=== PATIENT | female | born 1975 | race Caucasian/White ===

== ENCOUNTER 2024-01-15 19:45 | Emergency (ER) | payer MEDICAID, SELFPAY ==
[2024-01-15 19:46] VITALS: BMI 29.0
[2024-01-15 20:21] VITALS: BP 121/85; PULSE 85; RESP 18; TEMP 36.8; O2SAT 99
--- NOTE | 2024-01-15 20:31 | XR_ITS ---
Examination: CT abdomen with intravenous contrast CT pelvis with intravenous contrast 2-D coronal reconstructions 2-D sagittal reconstructions Date and time of exam:January 25, 2024 1108 hrs. Indications: Onset left-sided abdominal pain and black stools beginning one week ago Comparison: July 29, 2020,. CTDI: vol (mGy) 8.61 DLP: (mGycm) 475 Technique: Multiple axial sections of the abdomen and pelvis have been obtained. 64 slice high-resolution scanner used. 3 mm axial sections have been obtained, post intravenous injection 60 cc [id number] 2-D sagittal, coronal reconstructions obtained. Low dose protocols were performed. One or more of the following dose reduction techniques were used; automated exposure control, adjustment of the mA and/or KV according to patient size, use of iterative reconstruction technique. Findings: No focal liver or splenic lesions No gallstones No pancreatic or adrenal mass No renal or ureteral calculi, no hydronephrosis Aorta normal size Normal appendix No bowel obstruction No current diverticulitis Anteverted uterus Urinary bladder intact Impression: No renal or ureteral calculi, no hydronephrosis Normal appendix No bowel obstruction diverticulitis or free air No nonspecific colitis or enteritis pattern
--- NOTE | 2024-01-15 20:32 | PD.EDRME ---
Rapid Medical Screening Exam [facility] Arrival date/time: 01/15/24 19:45 48F with history of diverticulitis presents to ED with several days of L-sided ab pain. Patient has been taking Augmentin from PCP w/o improvement. Patient has had flares before, but this time there was black stool. Patient has not taken iron or Pepto. Chief Complaint: Abdominal Pain Vital signs: Vital Signs Temperature 98.2 F 01/15/24 20:21 Pulse Rate 85 01/15/24 20:21 Respiratory Rate 18 01/15/24 20:21 Blood Pressure 121/85 H 01/15/24 20:21 Pulse Oximetry (%) 99 01/15/24 20:21 Oxygen Delivery Method Room Air 01/15/24 20:21
[2024-01-15 20:46] LABS: Basophils % (Auto) 0 % (0-2.5); Eosinophils # (Auto) 0.2 Thou/mm3 (0.0-0.5); Eosinophils % (Auto) 2 % (0-10); Hematocrit 43.8 % (36.0-46.0); Immature Granulocytes % (Auto) 0 % (0-0); Immature Granulocytes Auto 0.01 Thou/mm3 (0.00-0.00); Lymphocytes # (Auto) 2.3 Thou/mm3 (1.0-4.8); Lymphocytes % (Auto) 32 % (10-50); Mean Corpuscular HGB Conc 34.2 g/dl (31.0-37.0); Mean Corpuscular Hemoglobin 30.4 pg (25.0-35.0); Mean Corpuscular Volume 89 fL (80-100); Monocytes # (Auto) 0.5 Thou/mm3 (0.0-0.8); Monocytes % (Auto) 6 % (0-12); Neutrophils # (Auto) 4.2 Thou/mm3 (1.8-7.7); Neutrophils % (Auto) 58 % (37-80); Nucleated Red Blood Cell % 0 /100 WBC (0); Platelet Count 251 Thou/mm3 (140-440); RDW Standard Deviation 40.9 fL (36.4-46.3); Red Blood Count 4.93 Miln/mm3 (4.00-5.20); White Blood Count 7.1 Thou/mm3 (3.6-11.0)
[2024-01-15 21:02] LABS: Collection Type, Urine Clean Catch; WBC,Urine 0 /hpf (0-5)
[2024-01-15 21:06] LABS: Alanine Aminotransferase 55 U/L (10-49); Albumin, Serum 4.6 gm/dL (3.5-5.0); Albumin/Globulin Ratio 1.3 (1.2-2.2); Alkaline Phosphatase 71 U/L (46-116); Anion Gap 8 (7-16); Aspartate Amino Transferase 22 U/L (0-34); BUN/Creatinine Ratio 10 Ratio (12-20); Bilirubin,Total 0.4 mg/dL (0.3-1.2); Blood Urea Nitrogen 8 mg/dL (9-23); Calcium 10.1 mg/dL (8.3-10.6); Calcium (Corrected) 10.1 mg/dL (8.5-10.1); Carbon Dioxide 26.4 mMol/L (20.0-31.0); Chloride 105 mMol/L (98-107); Creatinine (Component) 0.8 mg/dL (0.6-1.3); Estimated Creatinine Clearance 76.9 mL/min (>60); Globulin 3.5 gm/dL (2.3-3.5); Glucose 96 mg/dL (74-106); Lipase 39 U/L (12-53); Osmolality,Calculated 275 (275-295); Potassium 3.5 mMol/L (3.4-5.1); Sodium 139 mMol/L (136-145); Total Protein 8.1 gm/dL (5.7-8.2); eGFR > 60 See Note
[2024-01-15 21:55] LABS: Bacteria,Urine Rare; Bilirubin,Urine Negative (Negative); Blood,Urine 1+ (Negative); Clarity,Urine Clear (Clear/Hazy); Color,Urine Yellow (Lt Yel-Yel); Glucose, Urine Negative (Negative); Hyaline Casts,Urine < 1 /hpf (0-1); Ketones,Urine Negative (Negative); Leukocyte Esterase,Urine Negative (Negative); Nitrite,Urine Negative (Negative); Protein,Urine Trace (Neg - Trace); RBC,Urine 6 /hpf (0-3); Squamous Epithelial Cell,Urine 2 /hpf (0-5)
[2024-01-15 21:57] LABS: HCG Qualitative,Urine Negative
--- NOTE | 2024-01-15 23:09 | EDNOTE_ITS ---
ED Abdominal Pain RME/HPI General Chief Complaint: Abdominal Pain Stated complaint: L side pain, black stools Arrival date/time: 01/15/24 19:45 Limitations: no limitations RME / HPI RME / HPI narrative: 01/15/24 19:45 48F with history of diverticulitis presents to ED with several days of L-sided ab pain. Patient has been taking Augmentin from PCP w/o improvement. Patient has had flares before, but this time there was black stool. Patient has not taken iron or Pepto. ----- Dr. Wright's Main ED Evaluation: 48yo female with a history of diverticulitis presents to the ED for a chief complaint of black stools x 4 days. Patient states she is currently on antibiotics for diverticulitis after being diagnosed 4 days ago. She is not on any blood thinners. She denies taking any Motrin or Aspirin. She currently denies any abdominal pain, fever, chills, N/V or any other associated symptoms. Denies any history of similar symptoms. No known allergies. Related Data Home Medications ?Medication ?Instructions ?Recorded ?Confirmed No Known Home Medications 07/29/20 07/29/20 Allergies Allergy/AdvReac Type Severity Reaction Status Date / Time No Known Allergies Allergy Unknown Uncoded 01/15/24 19:49 Review of Systems Review of Systems Systems Reviewed: All systems reviewed, normal except as documented Past Medical History Past Medical History CARDIAC: Negative Cardiac Disorders or Congestive Heart Failure RESPIRATORY: Negative Chronic Obstructive Pulmonary Disease (COPD) or Asthma GENITOURINARY: Negative Renal Disease ENDOCRINE: Negative Diabetes Mellitus Type 1 or Diabetes Mellitus Type 2 HEMATOLOGIC: Negative Sickle Cell Disease Surgical History SURGICAL: Positive Section Social History SMOKING STATUS: Never smoker ED Exam General Limitations: Present no limitations General appearance: Present alert and in no apparent distress Head Head exam: Present atraumatic Eye Eye exam: Present normal appearance, PERRL and EOMI ENT ENT exam: Present normal exam, normal oropharynx and mucous membranes moist Neck Neck exam: Present normal inspection, full ROM and trachea midline Chest Chest inspection: Present normal inspection and symmetric chest wall rise Respiratory Respiratory exam: Present normal lung sounds bilaterally Cardiovascular Cardiovascular exam: Present regular rate, normal rhythm and normal heart sounds Abdominal Exam Abdominal exam: Present soft and normal bowel sounds Rectal Exam Rectal exam: Present heme (-) stool Extremities Exam Extremities exam: Present normal inspection and full ROM Back Exam Back exam: Present normal inspection and full ROM Neurological Exam Neurological exam: Present alert, oriented X3 and CN II-XII intact Psychiatric Psychiatric exam: Present normal affect and normal mood Skin Skin exam: Present warm, dry, intact and normal color Course Quality Measures none Orders Category Date Time Status CT Screening NOW Care 01/15/24 20:32 Active Insert IV NOW Care 01/15/24 20:[address] abdomen pelvis w con Stat Exams 01/15/24 20:31 Completed CBC Stat Lab 01/15/24 20:40 Completed CMP [Comprehensive Metabolic Panel] Stat Lab 01/15/24 20:40 Completed HCG Qualitative,Urine Stat Lab 01/15/24 20:52 Completed Lipase Stat Lab 01/15/24 20:40 Completed UA [Urinalysis] Stat Lab 01/15/24 20:52 Completed Vital Signs Vital signs: Vital Signs Temperature 98.2 F 01/15/24 20:21 Pulse Rate 85 01/15/24 20:21 Respiratory Rate 18 01/15/24 20:21 Blood Pressure 121/85 H 01/15/24 20:21 Pulse Oximetry (%) 99 01/15/24 20:21 Oxygen Delivery Method Room Air 01/15/24 20:21 Pulse ox is 99% on room air, which is normal according to my interpretation. Abdominal Pain MDM Patient data External records reviewed:: [facility] previous records (Per chart review, patient was seen here on 07/30/20 for diverticulitis.) Clinical information provided by:: patient Social determinants that could affect healthcare access:: none Patient has the following chronic illnesses:: none How is presenting disease/condition affected by chronic disease/condition?: no chronic disease Evaluation data The following diagnostics were reviewed and interpreted by me:: lab results and radiology exam(s) Lab and/or radiology exams considered but not ordered:: none Interpretation Summary: CBC is normal, CMP is normal, Lipase is normal, UA shows trace protein, 1+ blood, and rare bacteria, HCG is negative, according to my interpretation. ------ I have personally reviewed the radiology data and agree with the radiologist's interpretation below: [facility] Report Signed Patient: RASHAUN AVILA [facility]. Record#: [id number] Birthdate: 1975 Age/Sex: 48 / F Location: [facility] Attending Dr: Ordering Physician: [place] PA-C Date of Service: 01/15/24 Procedure(s): CT abdomen pelvis w con Accession Number(s): [id number] cc: Rey Yu PA-C; Jose Delarosa MD; Los Lei PA-C~ Examination: CT abdomen with intravenous contrast CT pelvis with intravenous contrast 2-D coronal reconstructions 2-D sagittal reconstructions Date and time of exam:January 25, 2024 1108 hrs. Indications: Onset left-sided abdominal pain and black stools beginning one week ago Comparison: July 29, 2020,. CTDI: vol (mGy) 8.61 DLP: (mGycm) 475 Technique: Multiple axial sections of the abdomen and pelvis have been obtained. 64 slice high-resolution scanner used. 3 mm axial sections have been obtained, post intravenous injection 60 cc [id number] 2-D sagittal, coronal reconstructions obtained. Low dose protocols were performed. One or more of the following dose reduction techniques were used; automated exposure control, adjustment of the mA and/or KV according to patient size, use of iterative reconstruction technique. Findings: No focal liver or splenic lesions No gallstones No pancreatic or adrenal mass No renal or ureteral calculi, no hydronephrosis Aorta normal size Normal appendix No bowel obstruction No current diverticulitis Anteverted uterus Urinary bladder intact Impression: No renal or ureteral calculi, no hydronephrosis Normal appendix No bowel obstruction diverticulitis or free air No nonspecific colitis or enteritis pattern Dictated By: Jose Delarosa MD Signed By: <Electronically signed by Jose Delarosa MD in [place]> 01/15/24 2102 Medications / Prescriptions Medications or Prescriptions considered but not ordered:: none Medication administrations:: none Consultations Consultation(s) initiated? (list below): No Diagnosis Differential diagnosis abdominal pain: diverticulitis and other (diverticular disease, dehydration, GI bleed) Most likely diagnosis given after review of the tests above:: see below Admission Indicated Admission indicated?: not indicated Admission Request Was there a request for admission?: No Disposition Plan Disposition Plan: Discharge Discharge Attestation Discharge Attestation: The patient and all family members were given an opportunity to ask questions and understood the discharge instructions. Discharge instructions specifically effects, indications for sooner follow up or return to the emergency department, and the expected course of current diagnosis. Patient condition: Stable Discharge Plan Plan Patient Disposition: HOME (Self Care) Patient condition on transfer: Stable Prescriptions/Referrals Prescriptions/Med Rec: No Action No Known Home Medications Referrals: Rey Yu PA-C [Primary Care Provider] - In 1 week Problem List Clinical Impression: Dark stools Patient/Caregiver Discharge Instructions Additional Instructions: Today your stool did not show that you have blood, Your Ct scan did not show infection. Return to the ED for worsening symptoms, fevers, or any other concerns. Take your antibiotics as prescribed. Print Language: Palestinian Stand Alone Forms: Miesha Award Info., Patient Portal Info Letter
[2024-01-16 00:53] VITALS: BP 118/78; PULSE 73; RESP 18; O2SAT 99
== END 2024-01-16 00:42 | disposition home or self-care (01) ==
PROVIDERS: Physician Assistant; Emergency Provider Emergency Medicine; PCP Physician Assistant
DX: K92.1 Melena (principal)
CPT/HCPCS: 36415; 74177; 80053; 81001; 81025; 83690; 85025; 99285; A4649; Q9967

== ENCOUNTER 2024-07-16 15:37 | Emergency (ER) | payer MEDICAID, SELFPAY ==
[2024-07-16 15:37] VITALS: BMI 30.2
[2024-07-16 16:27] VITALS: BP 116/64; PULSE 79; RESP 20; TEMP 36.7; O2SAT 96
--- NOTE | 2024-07-16 16:35 | EDNOTE_ITS ---
ED Abdominal Pain RME/HPI General Chief Complaint: Abdominal Pain Stated complaint: LUQ PAIN Time seen by provider: 07/16/24 16:18 Arrival date/time: 07/16/24 15:37 Limitations: no limitations RME / HPI RME / HPI narrative: 49-year-old female here for abdominal pain x 2 days. Went to PCP and started on Macrobid for UTI. However she thinks she has diverticulitis. States the pain feels like before. Despite no diarrhea no rectal bleeding. denies fever, chills, N/V or any other associated symptoms. Has never had colonoscopy to rule out colonic mass. Otherwise no contributing medical history Related Data Previous Rx's ?Medication ?Instructions ?Recorded ciprofloxacin HCl 500 mg tablet 500 mg PO Q12H 10 days #20 tabs 07/16/24 (Cipro) Allergies Allergy/AdvReac Type Severity Reaction Status Date / Time No Known Allergies Allergy Unknown Uncoded 07/16/24 15:39 Review of Systems Review of Systems Systems Reviewed: All systems reviewed, normal except as documented Constitutional Constitutional: Denies fever(s) Gastrointestinal Gastrointestinal: Reports as per HPI Genitourinary Genitourinary: Denies hematuria and Denies urinary frequency ED Exam General Limitations: Present no limitations General appearance: Present alert and in no apparent distress Eye Eye exam: Present normal appearance, PERRL and EOMI Respiratory Respiratory exam: Present normal lung sounds bilaterally Cardiovascular Cardiovascular exam: Present regular rate, normal rhythm and normal heart sounds Abdominal Exam Abdominal exam: Present soft, tenderness (luq ttp) and normal bowel sounds Extremities Exam Extremities exam: Present normal inspection and full ROM Back Exam Back exam: Present normal inspection and full ROM Psychiatric Psychiatric exam: Present normal affect and normal mood Skin Skin exam: Present warm, dry, intact and normal color Course Quality Measures none Orders Category Date Time Status CT Screening NOW Care 07/16/24 16:35 Completed IV [Insert IV] NOW Care 07/16/24 16:[address] abdomen pelvis w con Stat Exams 07/16/24 16:35 Completed CBC Stat Lab 07/16/24 16:51 Completed CMP [Comprehensive Metabolic Panel] Stat Lab 07/16/24 16:51 Completed HCG Qualitative,Urine Stat Lab 07/16/24 17:07 Completed Lipase Stat Lab 07/16/24 16:51 Completed UA [Urinalysis] Stat Lab 07/16/24 17:07 Completed Ciprofloxacin HCl [Ciprofloxacin] Med 07/16/24 18:52 Discontinued 500 mg PO X1 ONE Vital Signs Vital signs: Vital Signs Temperature 98.1 F 07/16/24 16:27 Pulse Rate 79 07/16/24 16:27 Respiratory Rate 20 07/16/24 16:27 Blood Pressure 116/64 07/16/24 16:27 Pulse Oximetry (%) 96 07/16/24 16:27 Oxygen Delivery Method Room Air 07/16/24 16:27 Abdominal Pain MDM Patient data External records reviewed:: [facility] previous records Clinical information provided by:: patient Social determinants that could affect healthcare access:: other (specify) (PCP appointment not available on weekends) Patient has the following chronic illnesses:: History of diverticulitis How is presenting disease/condition affected by chronic disease/condition?: exacerbated by Evaluation data The following diagnostics were reviewed and interpreted by me:: lab results and radiology exam(s) Lab and/or radiology exams considered but not ordered:: Chest x-ray was considered however unlikely to change the course of treatment today Interpretation Summary: CBC CMP within normal limits UA does show suggestion of UTI along with CT scan no diverticulitis only diverticulosis does suggest UTI as well Medications / Prescriptions Medications or Prescriptions considered but not ordered:: Narcotics were considered but not warranted given patient pain is controlled Medication administrations:: Medication Administration History Discontinued Medications Ciprofloxacin (Ciprofloxacin Hcl 250 Mg Tablet) 500 mg PO X1 ONE Stop: 07/16/24 18:53 Last Admin: 07/16/24 18:58 Dose: 500 mg Documented By: Change medication to ciprofloxacin given breakthrough symptoms with Macrobid Consultations Consultation(s) initiated? (list below): No Diagnosis Differential diagnosis abdominal pain: abdominal pain, calculus of kidney, constipation, diverticulitis, gastroenteritis and pancreatitis Most likely diagnosis given after review of the tests above:: UTI Diverticulosis without abscess Admission Indicated Admission indicated?: not indicated Admission Request Was there a request for admission?: No Disposition Plan Disposition Plan: Discharge Discharge Attestation Discharge Attestation: The patient and all family members were given an opportunity to ask questions and understood the discharge instructions. Discharge instructions specifically effects, indications for sooner follow up or return to the emergency department, and the expected course of current diagnosis. Patient condition: Stable Discharge Plan Plan Patient Disposition: HOME (Self Care) Discharge Disposition comment: Follow-up with PCP in 2 to 3 days Prescriptions/Referrals Prescriptions/Med Rec: New ciprofloxacin HCl [Cipro] 500 mg tablet 500 mg PO Q12H 10 Days Qty: 20 0RF Referrals: Rey Yu PA-C [Primary Care Provider] - In 1 week Problem List Clinical Impression: Abdominal pain, UTI (urinary tract infection), Diverticulosis Patient/Caregiver Discharge Instructions Education Materials: ED Flank Pain, Uncertain Cause, ED CYSTITIS Female Adult Print Language: Bengali Stand Alone Forms: Miesha Award Info., Patient Portal Info Letter PA/MEDICAL FRONT DESK COORDINATOR Supervising Physician PA/MEDICAL FRONT DESK COORDINATOR Supervising Physician: Dr. ESTEVEZ
--- NOTE | 2024-07-16 16:35 | XR_ITS ---
Examination: CT abdomen with intravenous contrast CT pelvis with intravenous contrast 2-D coronal reconstructions 2-D sagittal reconstructions Date and time of exam:July 16, 2024 1747 hours Comparison January 15, 2024 INDICATIONS: Left lower abdominal pain beginning 3 days ago with blood in the urine, history diverticulitis. CTDI: vol (mGy) 9.52 DLP: (mGycm) 484 Technique: Multiple axial sections of the abdomen and pelvis have been obtained. 64 slice high-resolution scanner used. 3 mm axial sections have been obtained, post intravenous injection 60 cc Isovue-370 2-D sagittal, coronal reconstructions obtained. Low dose protocols were performed. One or more of the following dose reduction techniques were used; automated exposure control, adjustment of the mA and/or KV according to patient size, use of iterative reconstruction technique. Findings: No focal liver or splenic lesions No gallstones No pancreatic or adrenal mass No renal or ureteral calculi, no hydronephrosis 10 mm fat-containing umbilical hernia Normal appendix Colonic diverticulosis, no diverticulitis Anteverted uterus No uterine or adnexal mass No bladder mass or bladder calculi Minimal thickening of the anterior urinary bladder wall, axial image 198, 6 mm IMPRESSION: No renal or ureteral calculi, no hydronephrosis Normal appendix Colonic diverticulosis, no diverticulitis No bowel obstruction Minimal thickening of the urinary bladder wall, consider cystitis
[2024-07-16 17:00] LABS: Basophils % (Auto) 0 % (0-2.5); Eosinophils # (Auto) 0.1 Thou/mm3 (0.0-0.5); Eosinophils % (Auto) 1 % (0-10); Hematocrit 38.6 % (36.0-46.0); Hemoglobin 14.1 g/dL (12.0-16.0); Immature Granulocytes % (Auto) 0 % (0-0); Immature Granulocytes Auto 0.02 Thou/mm3 (0.00-0.00); Lymphocytes # (Auto) 1.9 Thou/mm3 (1.0-4.8); Lymphocytes % (Auto) 28 % (10-50); Mean Corpuscular HGB Conc 36.5 g/dl (31.0-37.0); Mean Corpuscular Volume 85 fL (80-100); Monocytes # (Auto) 0.4 Thou/mm3 (0.0-0.8); Monocytes % (Auto) 6 % (0-12); Neutrophils # (Auto) 4.4 Thou/mm3 (1.8-7.7); Neutrophils % (Auto) 65 % (37-80); Nucleated Red Blood Cell % 0 /100 WBC (0); Platelet Count 258 Thou/mm3 (140-440); RDW Standard Deviation 38.3 fL (36.4-46.3); Red Blood Count 4.55 Miln/mm3 (4.00-5.20); White Blood Count 6.7 Thou/mm3 (3.6-11.0)
[2024-07-16 17:14] LABS: Collection Type, Urine Clean Catch
[2024-07-16 17:16] LABS: Alanine Aminotransferase 12 U/L (10-49); Albumin, Serum 4.2 gm/dL (3.5-5.0); Albumin/Globulin Ratio 1.5 (1.2-2.2); Alkaline Phosphatase 49 U/L (46-116); Anion Gap 8 (7-16); BUN/Creatinine Ratio 10 Ratio (12-20); Bilirubin,Total 0.7 mg/dL (0.3-1.2); Blood Urea Nitrogen 9 mg/dL (9-23); Chloride 106 mMol/L (98-107); Creatinine (Component) 0.9 mg/dL (0.6-1.3); Estimated Creatinine Clearance 68.9 mL/min (>60); Globulin 2.8 gm/dL (2.3-3.5); Glucose 96 mg/dL (74-106); Lipase 36 U/L (12-53); Osmolality,Calculated 274 (275-295); Potassium 4.2 mMol/L (3.4-5.1); Sodium 138 mMol/L (136-145); eGFR > 60 See Note
[2024-07-16 17:24] LABS: HCG Qualitative,Urine Negative
[2024-07-16 17:31] LABS: Bacteria,Urine Rare; Bilirubin,Urine Negative (Negative); Blood,Urine Trace (Negative); Clarity,Urine Clear (Clear/Hazy); Color,Urine Lt-Yellow (Lt Yel-Yel); Glucose, Urine Negative (Negative); Ketones,Urine 1+ (Negative); Leukocyte Esterase,Urine Negative (Negative); Nitrite,Urine Negative (Negative); Protein,Urine Negative (Neg - Trace); RBC,Urine 2 /hpf (0-3); Specific Gravity,Urine 1.009 (1.001-1.035); Squamous Epithelial Cell,Urine 4 /hpf (0-5); Urobilinogen,Urine Negative mg/dL (0.0-1.0); WBC,Urine < 1 /hpf (0-5)
[2024-07-16] MEDS: CIPROFLOXACIN HCL 250 MG TABLET 500 MG PO (18:58)
[2024-07-16 19:04] VITALS: BP 132/78; PULSE 80; RESP 18; TEMP 37.1; O2SAT 98
== END 2024-07-16 19:05 | disposition home or self-care (01) ==
PROVIDERS: Physician Assistant; Emergency Provider Family Medicine; PCP Physician Assistant
DX: N39.0 Urinary tract infection, site not specified (principal); K57.90 Diverticulosis of intestine, part unspecified, without perforation or abscess without bleeding
CPT/HCPCS: 36415; 74177; 80053; 81001; 81025; 83690; 85025; 99285; A4649; Q9967; A9270

== ENCOUNTER 2024-07-19 20:02 | Emergency (ER) | payer MEDICAID, SELFPAY ==
[2024-07-19 20:02] VITALS: BMI 30.2
[2024-07-19 20:10] VITALS: BP 126/81; PULSE 83; RESP 20; TEMP 36.9; O2SAT 96
--- NOTE | 2024-07-19 20:35 | PD.EDABDPN ---
ED Abdominal Pain RME/HPI General Chief Complaint: Abdominal Pain Stated complaint: RIGHT ABD PAIN X 3DAYS Time seen by provider: 07/19/24 20:12 Arrival date/time: 07/19/24 20:02 Source: patient and family Limitations: no limitations RME / HPI complaint: abdominal pain Onset (ago): day(s) Consistency: intermittent Location: diffuse, LLQ and RLQ Severity scale (1-10): 5 Related Data Previous Rx's ?Medication ?Instructions ?Recorded ciprofloxacin HCl 500 mg tablet 500 mg PO Q12H 10 days #20 tabs 07/16/24 (Cipro) Allergies Allergy/AdvReac Type Severity Reaction Status Date / Time No Known Allergies Allergy Unknown Uncoded 07/16/24 15:39 Review of Systems Constitutional Constitutional: Reports system reviewed and no additional complaints, except as documented Eyes Eyes: Reports system reviewed and no additional complaints, except as documented, Denies dry eyes, Denies exophthalmos and Reports floaters Cardiovascular Cardiovascular: Denies chest pain with activity and Denies claudication ED Exam Narrative Physical exam: Patient is able to do 5 jumping jacks without grimace or guarding. The abdomen is soft nontender without any apparent masses. Negative for rebound tenderness. There is some tenderness to palpation in the right and left lower quadrant but again there is no guarding and no grimacing. The bowel sounds are hyperactive. General Limitations: Present no limitations General appearance: Present alert and in no apparent distress Head Head exam: Present atraumatic Eye Eye exam: Present normal appearance, PERRL and EOMI ENT ENT exam: Present normal exam, normal oropharynx and mucous membranes moist Neck Neck exam: Present normal inspection, full ROM and trachea midline Chest Chest inspection: Present normal inspection and symmetric chest wall rise Respiratory Respiratory exam: Present normal lung sounds bilaterally Cardiovascular Cardiovascular exam: Present regular rate, normal rhythm and normal heart sounds Abdominal Exam Abdominal exam: Present soft, tenderness (Mildly tender to palpation) and hyperactive bowel sounds Abdominal tenderness: Present RLQ and LLQ Rectal Exam Rectal exam: Present deferred Extremities Exam Extremities exam: Present normal inspection and full ROM Back Exam Back exam: Present normal inspection and full ROM Neurological Exam Neurological exam: Present alert and oriented X3 Psychiatric Psychiatric exam: Present normal affect and normal mood Skin Skin exam: Present warm, dry, intact and normal color Course Course Course Narrative: Patient will have a CBC, CMP, UA. Quality Measures none (NA) Orders Category Date Time Status CBC Stat Lab 07/19/24 20:46 Completed Comprehensive Metabolic Panel Stat Lab 07/19/24 20:46 Completed Lipase Stat Lab 07/19/24 20:46 Completed Urinalysis Stat Lab 07/19/24 21:01 Completed Vital Signs Vital signs: Vital Signs Temperature 98.4 F 07/19/24 20:10 Pulse Rate 83 07/19/24 20:10 Respiratory Rate 20 07/19/24 20:10 Blood Pressure 126/81 07/19/24 20:10 Pulse Oximetry (%) 96 07/19/24 20:10 Oxygen Delivery Method Room Air 07/19/24 20:10 Pulse ox room air is 96%. Abdominal Pain MDM MDM Narrative MDM Narrative:: Patient will be informed of her labs and she is to primary care physician for follow-up to today's visit. She does not have a urinary tract infection so it should be up to her and her doctor as to whether she should continue this ciprofloxacin and the nitrofurantoin. Patient data External records reviewed:: Other (specify) (No) Clinical information provided by:: patient Social determinants that could affect healthcare access:: none Patient has the following chronic illnesses:: None How is presenting disease/condition affected by chronic disease/condition?: no chronic disease Evaluation data The following diagnostics were reviewed and interpreted by me:: lab results Lab and/or radiology exams considered but not ordered:: Lab results indicate no apparent urinary tract infection Interpretation Summary: N/A Medications / Prescriptions Medications or Prescriptions considered but not ordered:: N/A Medication administrations:: NA Consultations Consultation(s) initiated? (list below): No Consultation #1 (Physician, Specialty, Details): N/A Diagnosis Differential diagnosis abdominal pain: abdominal pain, constipation and diverticulitis Most likely diagnosis given after review of the tests above:: NA Admission Indicated Admission indicated?: not indicated Explain why admission is indicated or not indicated:: N/A Admission Request Was there a request for admission?: No Disposition Plan Disposition Plan: Discharge Discharge Attestation Discharge Attestation: The patient and all family members were given an opportunity to ask questions and understood the discharge instructions. Discharge instructions specifically effects, indications for sooner follow up or return to the emergency department, and the expected course of current diagnosis. Patient condition: Stable Discharge Plan Plan Patient Disposition: HOME (Self Care) Discharge Disposition comment: N/A Patient condition on transfer: Stable Prescriptions/Referrals Prescriptions/Med Rec: No Action ciprofloxacin HCl [Cipro] 500 mg tablet 500 mg PO Q12H 10 Days Qty: 20 0RF Referrals: Temporary Provider,ED [Physician] - In 1 week Problem List Clinical Impression: Abdominal pain Impression comment: Abdominal pain Patient/Caregiver Discharge Instructions Discharge Activity: activity as tolerated Print Language: Wolof Stand Alone Forms: Miesha Award Info., Patient Portal Info Letter PA/DETECTIVE SUPERVISOR Supervising Physician PA/DETECTIVE SUPERVISOR Supervising Physician: Harinder
[2024-07-19 21:04] LABS: Basophils # (Auto) 0.1 Thou/mm3 (0.0-0.2); Basophils % (Auto) 1 % (0-2.5); Eosinophils # (Auto) 0.1 Thou/mm3 (0.0-0.5); Eosinophils % (Auto) 1 % (0-10); Hematocrit 38.5 % (36.0-46.0); Immature Granulocytes % (Auto) 0 % (0-0); Immature Granulocytes Auto 0.01 Thou/mm3 (0.00-0.00); Lymphocytes # (Auto) 1.6 Thou/mm3 (1.0-4.8); Lymphocytes % (Auto) 24 % (10-50); Mean Corpuscular HGB Conc 36.4 g/dl (31.0-37.0); Mean Corpuscular Hemoglobin 30.7 pg (25.0-35.0); Mean Corpuscular Volume 84 fL (80-100); Monocytes # (Auto) 0.4 Thou/mm3 (0.0-0.8); Monocytes % (Auto) 5 % (0-12); Neutrophils # (Auto) 4.7 Thou/mm3 (1.8-7.7); Neutrophils % (Auto) 68 % (37-80); Nucleated Red Blood Cell % 0 /100 WBC (0); Platelet Count 238 Thou/mm3 (140-440); RDW Standard Deviation 37.4 fL (36.4-46.3); Red Blood Count 4.56 Miln/mm3 (4.00-5.20); White Blood Count 6.8 Thou/mm3 (3.6-11.0)
[2024-07-19 21:16] LABS: Alanine Aminotransferase 13 U/L (10-49); Albumin, Serum 4.4 gm/dL (3.5-5.0); Albumin/Globulin Ratio 1.6 (1.2-2.2); Alkaline Phosphatase 49 U/L (46-116); Anion Gap 11 (7-16); BUN/Creatinine Ratio 9 Ratio (12-20); Bilirubin,Total 0.6 mg/dL (0.3-1.2); Blood Urea Nitrogen 8 mg/dL (9-23); Calcium 9.4 mg/dL (8.3-10.6); Calcium (Corrected) 9.4 mg/dL (8.5-10.1); Carbon Dioxide 19.6 mMol/L (20.0-31.0); Chloride 102 mMol/L (98-107); Creatinine (Component) 0.9 mg/dL (0.6-1.3); Estimated Creatinine Clearance 68.9 mL/min (>60); Globulin 2.8 gm/dL (2.3-3.5); Glucose 122 mg/dL (74-106); Lipase 39 U/L (12-53); Osmolality,Calculated 265 (275-295); Potassium 3.7 mMol/L (3.4-5.1); Sodium 133 mMol/L (136-145); Total Protein 7.2 gm/dL (5.7-8.2); eGFR > 60 See Note
[2024-07-19 21:17] LABS: Collection Type, Urine Clean Catch; WBC,Urine 0 /hpf (0-5)
[2024-07-19 21:56] LABS: Bilirubin,Urine Negative (Negative); Blood,Urine 1+ (Negative); Clarity,Urine Clear (Clear/Hazy); Color,Urine Colorless (Lt Yel-Yel); Glucose, Urine Negative (Negative); Ketones,Urine 1+ (Negative); Leukocyte Esterase,Urine Negative (Negative); Nitrite,Urine Negative (Negative); Protein,Urine Negative (Neg - Trace); RBC,Urine 1 /hpf (0-3); Specific Gravity,Urine 1.005 (1.001-1.035); Squamous Epithelial Cell,Urine 2 /hpf (0-5); Urobilinogen,Urine Negative mg/dL (0.0-1.0)
== END 2024-07-19 23:13 | disposition home or self-care (01) ==
PROVIDERS: Physician Assistant; Emergency Provider Emergency Medicine; PCP Physician Assistant
DX: R10.9 Unspecified abdominal pain (principal)
CPT/HCPCS: 36415; 80053; 81001; 83690; 83735; 85025; 86140; 99283

== ENCOUNTER → 2024-10-11 | Outpatient (CLI) | payer MEDICAID, SELFPAY ==
--- NOTE | 2024-10-11 10:10 | XR_ITS ---
Examination: CT abdomen, without intravenous contrast. CT pelvis, without intravenous contrast. CT abdomen, with intravenous contrast. CT pelvis, with intravenous contrast. 2-D sagittal coronal reconstructions. Date and time of exam:October 11, 2024, 1024 hours, comparison July 16, 2024 INDICATIONS: Left lower quadrant abdominal pain and constipation beginning 3 weeks ago CTDI: vol (mGy) 15.8 DLP: (mGycm) 845 Technique: Multiple 3.0 axial images of the abdomen and pelvis without intravenous contrast, 3.0 mm slice thickness. Multiple 3.0 postcontrast images abdomen and pelvis also obtained, post intravenous injection 60 cc Isovue-370 2-D sagittal and coronal reconstructions. Low dose protocols were performed. One or more of the following dose reduction techniques were used; automated exposure control, adjustment of the mA and/or KV according to patient size, use of iterative reconstruction technique. Findings: No focal liver or splenic lesions Contracted gallbladder No pancreatic or adrenal mass. No renal or ureteral calculi, no hydronephrosis Aorta normal size. Normal appendix Anteverted uterus No adnexal mass. Contracted urinary bladder Moderate osteopenia IMPRESSION: No renal or ureteral calculi, no hydronephrosis Normal appendix No bowel obstruction diverticulitis or free air.
== END | disposition home or self-care (01) ==
LOC: CCTX 08:58 → SCAT 09:53
PROVIDERS: PCP Physician Assistant; Referring Provider Physician Assistant; Visit Provider Physician Assistant
DX: R10.32 Left lower quadrant pain (principal); K57.32 Diverticulitis of large intestine without perforation or abscess without bleeding; Z12.11 Encounter for screening for malignant neoplasm of colon
CPT/HCPCS: 74178; A4649; Q9967

== ENCOUNTER 2024-10-12 22:35 | Emergency (ER) | payer MEDICAID, SELFPAY ==
[2024-10-12 22:47] VITALS: BP 139/75; PULSE 95; RESP 16; TEMP 37; O2SAT 97; BMI 29.5
--- NOTE | 2024-10-12 22:59 | EDNOTE_ITS ---
ED Syncope RME/HPI General Chief Complaint: Syncope / Near Syncope Stated Complaint: NEAR SYNCOPE Time Seen by Provider: 10/12/24 23:04 Arrival date/time: 10/12/24 22:35 RME / HPI RME / HPI narrative: See [facility] for Dr. Julien's HPI documentation. Related Data Previous Rx's ?Medication ?Instructions ?Recorded alprazolam 0.25 mg tablet (Xanax) 0.25 mg PO BID PRN a nxiety #10 tabs 10/13/24 Allergies Allergy/AdvReac Type Severity Reaction Status Date / Time No Known Allergies Allergy Verified 10/12/24 22:36 Review of Systems Review of Systems Systems Reviewed: All systems reviewed, normal except as documented Past Medical History Past Medical History CARDIAC: Negative Cardiac Disorders or Congestive Heart Failure RESPIRATORY: Negative Chronic Obstructive Pulmonary Disease (COPD) or Asthma GENITOURINARY: Negative Renal Disease ENDOCRINE: Negative Diabetes Mellitus Type 1 or Diabetes Mellitus Type 2 HEMATOLOGIC: Negative Sickle Cell Disease Surgical History SURGICAL: Positive Section Social History SMOKING STATUS: Never smoker ED Exam Narrative Physical exam: See [facility] for Dr. Julien's physical exam documentation. Course Course Course Narrative: CXR is ordered for determining the etiology of palpitations. Quality Measures none Orders Category Date Time Status EKG (ED ONLY) *Do not use* NOW Care 10/12/24 23:04 Completed EKG (ED Only) Stat Exams 10/12/24 23:04 Draft XR chest 1V portable Stat Exams 10/12/24 23:05 Completed BMP [Basic Metabolic Panel] Stat Lab 10/12/24 23:10 Completed BNP [B-Type Natriuretic Peptide] Stat Lab 10/12/24 23:10 Completed CBC Stat Lab 10/12/24 23:10 Completed D-Dimer Stat Lab 10/12/24 23:10 Completed Magnesium Stat Lab 10/12/24 23:10 Completed TSH [Thyroid Stimulating Hormone] Stat Lab 10/12/24 23:10 Completed Troponin I Stat Lab 10/12/24 23:10 Completed ALPRazoLAM [Xanax] Med 10/12/24 23:04 Discontinued 0.25 mg PO X1 ONE Vital Signs Vital signs: Vital Signs Temperature 98.6 F 10/12/24 22:47 Pulse Rate 95 10/12/24 22:47 Respiratory Rate 16 10/12/24 22:47 Blood Pressure 139/75 H 10/12/24 22:47 Pulse Oximetry (%) 97 10/12/24 22:47 Oxygen Delivery Method Room Air 10/12/24 22:47 Syncope MDM Narrative MDM Narrative:: This section includes all my notes and documentations, including HPI, PE, and ED course. Leonel Julien MD HPI: 49yo female here with palpitations that started just [employer]. Other symptoms include intense fear, sweating, chills, shaking, trouble breathing, chest pain, stomach pain, nausea, numbness and tingling in the hands and feet and face, confusion, hot flashes, and feeling faint. No other complaints. ROS: All negative except as documented in HPI. Physical Exam: General: Alert and oriented. Appears anxious. Eyes: Conjunctivae and lids clear. ENT: No nasal congestion. Neck: Supple. Heart: Sinus tachycardia noted. Lungs: No respiratory distress. Good air movement. No rhonchi, wheezing, rales. Abdomen: Soft and nontender. Normal bowel sounds. No distension. No rebound or guarding. Back: No CVA tenderness. Skin: Warm and dry. Neuro: Alert and oriented X 3. I reviewed all diagnostic test results. My interpretation of the EKG is sinus rhythm with no ST-T changes. My interpretation of the chest x-ray is NAD. Blood tests are unremarkable. At this point, diagnoses include: Palpitations due to anxiety Treatment here included: Xanax Recommended outpatient management. Based on my best medical judgment, made decision no further evaluation or treatment indicated at this time. Patient understands and agrees to the discharge instructions customized and printed, see below. Discharge instructions from Dr. Julien: 1. After extensive evaluation, there is no life-threatening condition. Such as heart attack or pulmonary embolism (blood clots in your lungs) or pneumothorax (collapsed lung). 2. Your symptoms may be due to underlying stress or anxiety or nerves. This is fairly common. 3. Take Xanax as needed. Whether this helps or not will be valuable information to your private doctors. 4. See a private doctor on 10/16/2024 for recheck. To make sure there is no serious underlying heart condition, ask to help you get more tests for your heart that cannot be done here in the ER. Such as Holter Monitor (cardiac monitoring at home from a day to even a month), heart stress test (on treadmill or with medication), echocardiogram (imaging of your heart structures), heart catherization (checking for blockages in your heart arteries), and a referral to see a Chinese Medicine Practitioner. 5. Seek immediate medical care with worsening or with any concerns. Leonel Julien MD Patient data External records reviewed:: [facility] previous records (Per chart review, patient was seen here on 07/19/24 for abdominal pain.) Clinical information provided by:: patient Social determinants that could affect healthcare access:: none Patient has the following chronic illnesses:: none How is presenting disease/condition affected by chronic disease/condition?: no chronic disease Evaluation data The following diagnostics were reviewed and interpreted by me:: lab results, radiology exam(s) and EKG tracing(s) (My interpretation of the EKG: NSR (94 bpm) with no ST-T changes. Leonel Julien MD) Lab and/or radiology exams considered but not ordered:: none Interpretation Summary: I reviewed all diagnostic test results. My interpretation of the EKG is sinus rhythm with no ST-T changes. My interpretation of the chest x-ray is NAD. Blood tests are unremarkable. Medications / Prescriptions Medications or Prescriptions considered but not ordered:: none Medication administrations:: Medication Administration History Discontinued Medications Alprazolam (Alprazolam 0.25 Mg Tablet) 0.25 mg PO X1 ONE Stop: 10/12/24 23:05 Last Admin: 10/12/24 23:21 Dose: 0.25 mg Documented By: ABNER Xanax Consultations Consultation(s) initiated? (list below): No Diagnosis Syncope Differential Diagnosis: pulmonary embolism, dehydration and other (palpitations, anxiety, SD) Most likely diagnosis given after review of the tests above:: Palpitations due to anxiety Admission Indicated Admission indicated?: not indicated Explain why admission is indicated or not indicated:: With significant improvement and no condition needing emergent intervention, there was no indication for admission. Admission Request Was there a request for admission?: No Disposition Plan Disposition Plan: Discharge Discharge Attestation Discharge Attestation: The patient and all family members were given an opportunity to ask questions and understood the discharge instructions. Discharge instructions specifically effects, indications for sooner follow up or return to the emergency department, and the expected course of current diagnosis. Patient condition: Stable Discharge Plan Plan Patient Disposition: HOME (Self Care) Prescriptions/Referrals Prescriptions/Med Rec: New alprazolam [Xanax] 0.25 mg tablet 0.25 mg PO BID PRN (Reason: anxiety) Qty: 10 0RF Problem List Clinical Impression: Palpitations Patient/Caregiver Discharge Instructions Discharge Activity: activity as tolerated Education Materials: ED Anxiety Reaction, ED Palpitations, ED Panic Attack Additional Instructions: Discharge instructions from Dr. Julien: 1. After extensive evaluation, there is no life-threatening condition.? Such as heart attack or pulmonary embolism (blood clots in your lungs) or pneumothorax (collapsed lung). 2. Your symptoms may be due to underlying stress or anxiety or nerves.? This is fairly common. 3. Take Xanax as needed.? Whether this helps or not will be valuable information to your private doctors. 4. See a private doctor on 10/16/2024 for recheck. To make sure there is no serious underlying heart condition, ask to help you get more tests for your heart that cannot be done here in the ER.? Such as Holter Monitor (cardiac monitoring at home from a day to even a month), heart stress test (on treadmill or with medication), echocardiogram (imaging of your heart structures), heart catherization (checking for blockages in your heart arteries), and a referral to see a Chinese Medicine Practitioner. 5. Seek immediate medical care with worsening or with any concerns.?? Print Language: Portuguese Stand Alone Forms: Miesha Award Info., Patient Portal Info Letter
--- NOTE | 2024-10-12 23:04 | EKG_ITS ---
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
--- NOTE | 2024-10-12 23:05 | XR_ITS ---
Examination: PA chest single view Technique: Upright PA chest single view Date and time: October 12, 2024, 1142 hrs. Indications: Shortness of breath dizziness today Findings: Normal heart size. The lungs are clear. The osseous structures are intact Impression: No active disease
[2024-10-12 23:29] LABS: Basophils # (Auto) 0.0 Thou/mm3 (0.0-0.2); Basophils % (Auto) 1 % (0-2.5); Eosinophils # (Auto) 0.2 Thou/mm3 (0.0-0.5); Eosinophils % (Auto) 3 % (0-10); Hematocrit 40.1 % (36.0-46.0); Hemoglobin 13.7 g/dL (12.0-16.0); Immature Granulocytes Auto 0.01 Thou/mm3 (0.00-0.00); Lymphocytes # (Auto) 2.4 Thou/mm3 (1.0-4.8); Lymphocytes % (Auto) 41 % (10-50); Mean Corpuscular HGB Conc 34.2 g/dl (31.0-37.0); Mean Corpuscular Hemoglobin 30.8 pg (25.0-35.0); Mean Corpuscular Volume 90 fL (80-100); Monocytes # (Auto) 0.4 Thou/mm3 (0.0-0.8); Monocytes % (Auto) 7 % (0-12); Neutrophils # (Auto) 2.8 Thou/mm3 (1.8-7.7); Neutrophils % (Auto) 48 % (37-80); Nucleated Red Blood Cell # 0.00 Thou/mm3 (0.00-0.00); Nucleated Red Blood Cell % 0 /100 WBC (0); Platelet Count 255 Thou/mm3 (140-440); RDW Standard Deviation 42.4 fL (36.4-46.3); Red Blood Count 4.45 Miln/mm3 (4.00-5.20); White Blood Count 5.8 Thou/mm3 (3.6-11.0)
[2024-10-12 23:51] LABS: B-Type Natriuretic Peptide < 20 pg/mL (0-100)
[2024-10-12 23:54] LABS: Anion Gap 11 (7-16); BUN/Creatinine Ratio 9 Ratio (12-20); Blood Urea Nitrogen 8 mg/dL (9-23); Calcium 9.8 mg/dL (8.3-10.6); Carbon Dioxide 22.3 mMol/L (20.0-31.0); Chloride 108 mMol/L (98-107); Creatinine (Component) 0.9 mg/dL (0.6-1.3); Estimated Creatinine Clearance 68.0 mL/min (>60); Glucose 111 mg/dL (74-106); Magnesium 2.1 mg/dL (1.6-2.6); Osmolality,Calculated 280 (275-295); Potassium 4.4 mMol/L (3.4-5.1); Sodium 141 mMol/L (136-145); Thyroid Stimulating Hormone 3.58 uIU/mL (0.55-4.78); Troponin I < 0.002 ng/mL (0.0-0.045); eGFR > 60 See Note
[2024-10-12 23:57] LABS: D-Dimer 867 ng/mL (<600)
== END 2024-10-13 00:24 | disposition home or self-care (01) ==
LOC: SERX 10-13 00:20
PROVIDERS: Emergency Provider Emergency Medicine; PCP Physician Assistant
DX: R00.2 Palpitations (principal)
CPT/HCPCS: 36415; 71045; 80048; 83735; 83880; 84443; 84484; 85025; 85379; 93005; 99284; A9270

== ENCOUNTER 2024-10-28 22:00 | Emergency (ER) | payer MEDICAID, SELFPAY ==
[2024-10-28 22:01] VITALS: BMI 27.8
[2024-10-28 22:08] VITALS: BP 144/84; PULSE 82; RESP 18; TEMP 36.9; O2SAT 97
--- NOTE | 2024-10-28 22:16 | EKG_ITS ---
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
--- NOTE | 2024-10-28 22:16 | XR_ITS ---
Examination: PA chest single view Technique: Upright PA chest single view Date and time: October 28, 2024 1140 hrs. Indications: Shortness of breath beginning 4 days ago. Findings: Atelectasis versus early pneumonia left base Normal heart size Right lung clear Impression: Atelectasis versus early pneumonia left base
[2024-10-28 22:41] LABS: Collection Type, Urine Voided
[2024-10-28 22:46] LABS: Basophils # (Auto) 0.0 Thou/mm3 (0.0-0.2); Basophils % (Auto) 1 % (0-2.5); Eosinophils # (Auto) 0.1 Thou/mm3 (0.0-0.5); Eosinophils % (Auto) 1 % (0-10); Hematocrit 39.9 % (36.0-46.0); Hemoglobin 13.7 g/dL (12.0-16.0); Immature Granulocytes Auto 0.01 Thou/mm3 (0.00-0.00); Lymphocytes # (Auto) 2.2 Thou/mm3 (1.0-4.8); Lymphocytes % (Auto) 35 % (10-50); Mean Corpuscular HGB Conc 34.3 g/dl (31.0-37.0); Mean Corpuscular Hemoglobin 30.6 pg (25.0-35.0); Mean Corpuscular Volume 89 fL (80-100); Monocytes # (Auto) 0.4 Thou/mm3 (0.0-0.8); Monocytes % (Auto) 6 % (0-12); Neutrophils # (Auto) 3.5 Thou/mm3 (1.8-7.7); Neutrophils % (Auto) 57 % (37-80); Nucleated Red Blood Cell # 0.00 Thou/mm3 (0.00-0.00); Nucleated Red Blood Cell % 0 /100 WBC (0); Platelet Count 252 Thou/mm3 (140-440); RDW Standard Deviation 39.8 fL (36.4-46.3); Red Blood Count 4.48 Miln/mm3 (4.00-5.20); White Blood Count 6.2 Thou/mm3 (3.6-11.0)
[2024-10-28 22:48] LABS: HCG Qualitative,Urine Negative
[2024-10-28 22:50] LABS: Amorphous Crystals,Urine Present (Absent); Bacteria,Urine Rare; Bilirubin,Urine Negative (Negative); Blood,Urine 1+ (Negative); Clarity,Urine Clear (Clear/Hazy); Color,Urine Lt-Yellow (Lt Yel-Yel); Glucose, Urine Negative (Negative); Ketones,Urine 1+ (Negative); Leukocyte Esterase,Urine Negative (Negative); Nitrite,Urine Negative (Negative); PH,Urine 6.0 (5.0-7.0); Protein,Urine Negative (Neg - Trace); RBC,Urine 2 /hpf (0-3); Specific Gravity,Urine 1.010 (1.001-1.035); Squamous Epithelial Cell,Urine 2 /hpf (0-5); Urobilinogen,Urine Negative mg/dL (0.0-1.0); WBC,Urine 2 /hpf (0-5)
[2024-10-28 23:01] LABS: D-Dimer < 250 ng/mL (<600)
[2024-10-28 23:05] LABS: B-Type Natriuretic Peptide < 20 pg/mL (0-100)
[2024-10-28 23:09] LABS: Alanine Aminotransferase 20 U/L (10-49); Albumin, Serum 4.4 gm/dL (3.5-5.0); Albumin/Globulin Ratio 1.4 (1.2-2.2); Alkaline Phosphatase 51 U/L (46-116); Anion Gap 11 (7-16); Aspartate Amino Transferase 17 U/L (0-34); BUN/Creatinine Ratio 9 Ratio (12-20); Bilirubin,Total 0.3 mg/dL (0.3-1.2); Blood Urea Nitrogen 7 mg/dL (9-23); Calcium 9.7 mg/dL (8.3-10.6); Calcium (Corrected) 9.7 mg/dL (8.5-10.1); Carbon Dioxide 21.5 mMol/L (20.0-31.0); Chloride 106 mMol/L (98-107); Creatinine (Component) 0.8 mg/dL (0.6-1.3); Estimated Creatinine Clearance 74.3 mL/min (>60); Globulin 3.2 gm/dL (2.3-3.5); Glucose 86 mg/dL (74-106); Osmolality,Calculated 272 (275-295); Potassium 3.6 mMol/L (3.4-5.1); Sodium 138 mMol/L (136-145); Thyroid Stimulating Hormone 4.22 uIU/mL (0.55-4.78); Total Protein 7.6 gm/dL (5.7-8.2); Troponin I < 0.002 ng/mL (0.0-0.045); eGFR > 60 See Note
--- NOTE | 2024-10-29 00:29 | PD.EDSOB ---
ED SOB =RME/HPI General Chief Complaint: Shortness of Breath/Dyspnea Stated Complaint: DIFF BREATHING Time Seen by Provider: 10/28/24 22:08 Arrival date/time: 10/28/24 22:00 This is a case of 49-year-old female with history of palpitation came in in the emergency room due to shortness of breath today specially when lying down associated with pleuritic chest pain and palpitation worsening of the symptoms this patient decided to sought consult here in the emergency room Limitations: no limitations Related Data Previous Rx's ?Medication ?Instructions ?Recorded alprazolam 0.25 mg tablet (Xanax) 0.25 mg PO BID PRN anxiety #10 tabs 10/13/24 amoxicillin 875 mg-potassium 1 tab PO BID #20 tabs 10/29/24 clavulanate 125 mg tablet azithromycin 250 mg tablet 250 mg PO QDAY 6 days #6 tabs 10/29/24 (Zithromax) Allergies Allergy/AdvReac Type Severity Reaction Status Date / Time No Known Allergies Allergy Verified 10/28/24 22:01 Review of Systems Review of Systems Systems Reviewed: All systems reviewed, normal except as documented Constitutional Constitutional: Reports system reviewed and no additional complaints, except as documented and Reports as per HPI ENT Ears, Nose, Mouth, and Throat: Reports system reviewed and no additional complaints, except as documented and Reports as per HPI Cardiovascular Cardiovascular: Reports system reviewed and no additional complaints, except as documented, Reports as per HPI, Reports chest pain, Denies chest pain at rest, Denies chest pain with activity, Denies claudication, Denies diaphoresis, Reports dyspnea, Denies dyspnea on exertion, Denies edema, Denies irregular heart rhythm, Denies leg edema, Denies leg ulcers, Denies lightheadedness, Denies orthopnea, Denies palpitations, Denies paroxysmal nocturnal dyspnea, Denies pedal edema, Denies radiating jaw, neck or arm pain, Reports rapid heart rate, Denies slow heart rate and Denies syncope Respiratory Respiratory: Reports system reviewed and no additional complaints, except as documented, Denies chest congestion, Denies cough, Reports dyspnea and Denies dyspnea on exertion Gastrointestinal Gastrointestinal: Reports system reviewed and no additional complaints, except as documented and Reports as per HPI Genitourinary Genitourinary: Reports system reviewed and no additional complaints, except as documented and Reports as per HPI Musculoskeletal Musculoskeletal: Reports system reviewed and no additional complaints, except as documented and Reports as per HPI Neurologic Neurologic: Reports system reviewed and no additional complaints, except as documented, Reports as per HPI and Denies syncope Endocrine Endocrine: Denies palpitations Past Medical History Past Medical History CARDIAC: Negative Cardiac Disorders or Congestive Heart Failure RESPIRATORY: Negative Chronic Obstructive Pulmonary Disease (COPD) or Asthma GENITOURINARY: Negative Renal Disease ENDOCRINE: Negative Diabetes Mellitus Type 1 or Diabetes Mellitus Type 2 HEMATOLOGIC: Negative Sickle Cell Disease Surgical History SURGICAL: Positive Section Social History SMOKING STATUS: Never smoker ED Exam General Limitations: Present no limitations General appearance: Present alert, in no apparent distress and other (Patient is awake alert oriented not in distress nontoxic looking well-hydrated well-nourished) Head Head exam: Present atraumatic, normocephalic and normal inspection Eye Eye exam: Present normal appearance, PERRL and EOMI ENT ENT exam: Present normal exam, normal oropharynx, mucous membranes moist and other (HEENT exam is normal and unremarkable) Neck Neck exam: Present normal inspection, full ROM and trachea midline; Absent tenderness, meningismus, lymphadenopathy or thyromegaly Chest Chest inspection: Present normal inspection and symmetric chest wall rise; Absent tenderness Respiratory Respiratory exam: Present normal lung sounds bilaterally and other (Crackles no rales no retraction no rhonchi); Absent respiratory distress, wheezes, stridor, accessory muscle use or prolonged expiratory phase Cardiovascular Cardiovascular exam: Present regular rate, normal rhythm, normal heart sounds and other (No edema); Absent bradycardia, tachycardia, irregular rhythm, systolic murmur or diastolic murmur Abdominal Exam Abdominal exam: Present soft and normal bowel sounds; Absent distention, tenderness, guarding, rebound, rigidity, diminished bowel sounds, hyperactive bowel sounds, hypoactive bowel sounds or organomegaly Extremities Exam Extremities exam: Present normal inspection and full ROM Back Exam Back exam: Present normal inspection and full ROM Neurological Exam Neurological exam: Present alert, oriented X3, CN II-XII intact, normal gait and reflexes normal; Absent motor sensory deficit Psychiatric Psychiatric exam: Present normal affect and normal mood Skin Skin exam: Present warm, dry, intact and normal color Course Quality Measures none Orders Category Date Time Status EKG (ED ONLY) *Do not use* NOW Care 10/28/24 22:17 Completed EKG (ED Only) Stat Exams 10/28/24 22:16 Draft XR chest 1V portable Stat Exams 10/28/24 22:16 Completed BNP [B-Type Natriuretic Peptide] Stat Lab 10/28/24 22:30 Completed CBC Stat Lab 10/28/24 22:30 Completed CMP [Comprehensive Metabolic Panel] Stat Lab 10/28/24 22:30 Completed D-Dimer Stat Lab 10/28/24 22:30 Completed HCG Qualitative,Urine Stat Lab 10/28/24 22:37 Completed TSH [Thyroid Stimulating Hormone] Stat Lab 10/28/24 22:30 Completed Troponin I Stat Lab 10/28/24 22:30 Completed Urinalysis Stat Lab 10/28/24 22:37 Completed cefTRIAXone [Rocephin] 1,000 mg Med 10/29/24 00:24 Discontinued Lidocaine 1% 20 ml [Xylocaine 1% 20 ML] 2.1 ml IM X1 Vital Signs Vital signs: Vital Signs Temperature 98.4 F 10/28/24 22:08 Pulse Rate 82 10/28/24 22:08 Respiratory Rate 18 10/28/24 22:08 Blood Pressure 144/84 H 10/28/24 22:08 Pulse Oximetry (%) 97 10/28/24 22:08 Oxygen Delivery Method Room Air 10/28/24 22:08 Patient is afebrile not tachycardic not tachypneic BP stable not hypoxic oxygen saturation is 97% in room are normal Shortness of Breath / Dyspnea MDM Narrative MDM Narrative:: This is a case of 49-year-old female with history of palpitation came in in the emergency room due to shortness of breath today specially when lying down associated with pleuritic chest pain and palpitation worsening of the symptoms this patient decided to sought consult here in the emergency room physical examination patient is awake alert oriented not in distress nontoxic looking well-hydrated well-nourished vital signs stable BP stable not tachycardic not tachypneic not hypoxic afebrile lungs sound is clear no crackles no rales no retraction no stridor heart normal rate regular rhythm no murmur the rest of the physical examination and neurological exam is normal and unremarkable blood test showed no leukocytosis no anemia kidney and liver function is normal no electrolyte imbalance urinalysis is normal troponin is normal BNP is also normal TSH is normal D-dimer was also noted and it is also normal EKG showed sinus rhythm 90 based on this result patient is not having myocardial infarction nor coronary artery disease nor pulmonary embolism patient chest x-ray showed pneumonia at this point patient chest pain is possible due to pneumonia more on lung origin not cardiac patient was discharged with Augmentin and azithromycin and was given ceftriaxone IM here in the emergency room she was advised to follow-up with PCP in 2 days for reevaluation and to be referred to storage management consultant for further evaluation and treatment of chest pain and palpitation for possible echocardiogram stress test and Holter monitor and any recurrence persistent worsening symptoms return to the emergency room immediately or call 911 she will continue the inhaler at home Patient was discharged with comfortable condition walking with stable gait. Patient verbalized no further complains explained diagnosis and answered patient question. Patient is comfortable with the proposed management plan including the need to follow up with his/her primary care physician and any specialist if applicable Discussed patient for any urgent condition or worsening sx, He/She needed to go to emergency room immediately or call 911. Patient acknowledge the responsibility to follow up as instructed and to monitor her/his symptoms. For any persistence of the symptoms for more than 3-5 days return precaution advised. Discussed the result of the test and was given printed discharge instruction Patient data External records reviewed:: [facility] previous records Clinical information provided by:: patient Social determinants that could affect healthcare access:: none Patient has the following chronic illnesses:: None How is presenting disease/condition affected by chronic disease/condition?: no chronic disease Evaluation data The following diagnostics were reviewed and interpreted by me:: lab results, radiology exam(s) and EKG tracing(s) Lab and/or radiology exams considered but not ordered:: Reviewed Interpretation Summary: Reviewed Medications / Prescriptions Medications or Prescriptions considered but not ordered:: Given Medication administrations:: Medication Administration History Discontinued Medications Ceftriaxone Sodium 1,000 mg/ (Lidocaine HCl 2.1 ml) 0 mg IM X1 ONE Stop: 10/29/24 00:25 Given Consultations Consultation(s) initiated? (list below): No Diagnosis Shortness of Breath Differential Diagnosis: acute exacerbation of chronic obstructive airways disease, congestive heart failure, community acquired pneumonia, asthma with exacerbation and pulmonary embolism Most likely diagnosis given after review of the tests above:: Pneumonia Admission Indicated Admission indicated?: not indicated Explain why admission is indicated or not indicated:: Not indicated Admission Request Was there a request for admission?: No Admission Attestation Admission request attestation: Not indicated Disposition Plan Disposition Plan: Discharge Discharge Attestation Discharge Attestation: The patient and all family members were given an opportunity to ask questions and understood the discharge instructions. Discharge instructions specifically effects, indications for sooner follow up or return to the emergency department, and the expected course of current diagnosis. Patient condition: Stable Discharge Plan Plan Patient Disposition: HOME (Self Care) Patient condition on transfer: Stable Prescriptions/Referrals Prescriptions/Med Rec: New amoxicillin-pot clavulanate 875-125 mg tablet 1 tab PO BID Qty: 20 0RF azithromycin [Zithromax] 250 mg tablet 250 mg PO QDAY 6 Days Qty: 6 0RF Rx Instructions: start on day 2 of therapy No Action alprazolam [Xanax] 0.25 mg tablet 0.25 mg PO BID PRN (Reason: anxiety) Qty: 10 0RF Referrals: Rey Yu PA-C [Primary Care Provider] - In 1 week Problem List Clinical Impression: Chest pain of unknown etiology, Palpitation, Pneumonia Patient/Caregiver Discharge Instructions Education Materials: ED Chest Pain, Uncertain Cause, ED Palpitations, ED Pneumonia (Adult) Additional Instructions: Follow-up with your primary care physician in 2 days for reevaluation and to be referred to storage management consultant for further evaluation and treatment of chest pain and palpitation recurrence persistent worsening symptoms or any emergent concern call 911 or go to the nearest emergency room take your medication as directed finish the course of antibiotic continue your inhaler keep hydrated Print Language: Swedish Stand Alone Forms: Miesha Award Info., Patient Portal Info Letter ESTHER/TAHMINA Supervising Physician ESTHER/TAHMINA Supervising Physician: dr alonso
[2024-10-29] MEDS: cefTRIAXone 1,000 MG, LIDOCAINE 1% 20 ML 2.1 ML IM (00:38)
== END 2024-10-29 00:41 | disposition home or self-care (01) ==
PROVIDERS: Nurse Practitioner Family; Emergency Provider Family Medicine; PCP Physician Assistant
DX: J18.9 Pneumonia, unspecified organism (principal)
CPT/HCPCS: 36415; 71045; 80053; 81001; 81025; 83880; 84443; 84484; 85025; 85379; 93005; 96372; 99283; J0696; J3490

== ENCOUNTER 2024-11-03 19:38 | Emergency (ER) | payer MEDICAID, SELFPAY ==
[2024-11-03] VITALS (7 sets, daily range): BP systolic 100–136; BP diastolic 67–87; PULSE 97–142; RESP 8–23; TEMP 37.2; O2SAT 97–99; BMI 27.8
--- NOTE | 2024-11-03 19:47 | EKG_ITS ---
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
--- NOTE | 2024-11-03 21:15 | EDNOTE_ITS ---
ED General RME/HPI General Chief complaint: General Adult/Misc Complain Stated complaint: RHR Time Seen by Provider: 11/03/24 20:57 Arrival date/time: 11/03/24 19:38 RME / HPI RME / HPI narrative: Dr. 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 Patient reports associated left precordial chest pressure. No N/V/D, diaphoresis, shortness of breath, or pleuritic chest pain. Denies fever or chills. Notes frequency of cough is diminished. PMH unremarkable for DM, HTN, or tachyarrhythmia. Cardiac Risk Factors: No tobacco use, HTN, or DM. + Family history. PE risk factors: No tobacco, recent surgery, family or personal history of DVT. + control pills. Related Data Previous Rx's ?Medication ?Instructions ?Recorded alprazolam 0.25 mg tablet (Xanax) 0.25 mg PO BID PRN a nxiety #10 tabs 10/13/24 amoxicillin 875 mg-potassium 1 tab PO BID #20 tabs clavulanate 125 mg tablet azithromycin 250 mg tablet 250 mg PO QDAY 6 days #6 ta bs 10/29/24 (Zithromax) Allergies Allergy/AdvReac Type Severity Reaction Status Date / Time No Known Allergies Allergy Verified 11/03/24 19:44 Review of Systems Review of Systems Systems Reviewed: All systems reviewed, normal except as documented Past Medical History Past Medical History CARDIAC: Negative Cardiac Disorders or Congestive Heart Failure RESPIRATORY: Negative Chronic Obstructive Pulmonary Disease (COPD) or Asthma GENITOURINARY: Negative Renal Disease ENDOCRINE: Negative Diabetes Mellitus Type 1 or Diabetes Mellitus Type 2 HEMATOLOGIC: Negative Sickle Cell Disease Surgical History SURGICAL: Positive Section Social History SMOKING STATUS: Never smoker ED Exam Narrative Physical exam: GENERAL APPEARANCE: alert and oriented x 4, well-developed, well-nourished, appears apprehensive VITALS: All vitals were reviewed and the pulse ox is 99% on room air, which is normal according to my interpretation. HEENT: Normocephalic, atraumatic; pupils equal, round, reactive to light; EOMI; mucous membranes pink, moist; oropharynx clear NECK: Supple, no JVD LUNGS: CTABL; no wheezes, no rales, no rhonchi HEART: Tachycardic; rapid, regular rhythm; normal S1, S2; no murmurs ABDOMEN: non distended; soft, mild diffuse tenderness, no guarding EXTREMITIES: atraumatic; no edema; no palpable calf tenderness NEUROLOGIC: awake; alert and oriented x4; cranial nerves II-XII grossly intact; no focal sensory or motor deficits PSYCHIATRIC: appropriate mood and affect SKIN: warm, dry, normal color; no rashes Course Course Course Narrative: CXR is ordered for determining the etiology of palpitations. Quality Measures none Orders Category Date Time Status Diamond Broker STAT Care 11/03/24 21:31 Active Continuous Pulse Oximetry ONCE Care 11/03/24 21:31 Active EKG (ED ONLY) *Do not use* NOW Care 11/03/24 19:47 Completed Insert IV NOW Care 11/03/24 21:31 Active Insert IV STAT Care 11/03/24 21:31 Active Intake and Output Routine Care 11/03/24 21:31 Ordered EKG (ED Only) Stat Exams 11/03/24 19:47 Draft XR chest 1V portable Stat Exams 11/03/24 21:31 Completed B-Type Natriuretic Peptide Stat Lab 11/03/24 22:00 Completed CBC Stat Lab 11/03/24 22:00 Completed Comprehensive Metabolic Panel Stat Lab 11/03/24 22:00 Completed D-Dimer Stat Lab 11/03/24 22:00 Completed Drug Screen,Urine Stat Lab 11/03/24 21:54 Completed HCG Titer if Positive Stat Lab 11/03/24 22:00 Completed Lipase Stat Lab 11/03/24 22:00 Completed Magnesium Stat Lab 11/03/24 22:00 Completed TSH [Thyroid Stimulating Hormone] Stat Lab 11/03/24 22:00 Completed Troponin I Stat Lab 11/03/24 22:00 Completed Urinalysis, C/S if Indicated Stat Lab 11/03/24 21:54 Completed Metoprolol Tartrate Inj [Lopressor Inj] Med 11/03/24 21:35 Discontinued 2.5 mg IVP X1 ONE Morphine* Inj Med 11/03/24 21:31 Discontinued 4 mg IVP Q30M PRN Potassium Chloride [K-Dur] Med 11/04/24 02:03 Discontinued 20 meq PO X1 ONE Sodium Chloride 0.9% 1000 ml [Ns] 1,000 ml Med 11/03/24 21:31 Active IV 100 mls/hr Sodium Chloride 0.9% 1000 ml [Ns] 1,000 ml Med 11/03/24 21:58 Discontinued IV 999 mls/hr Sodium Chloride 0.9% 1000 ml [Ns] 1,000 ml Med 11/04/24 02:23 Active IV 999 mls/hr Oxygen Delivery NOW RT 11/03/24 21:31 Active Vital Signs Vital signs: Vital Signs Temperature 99.0 F 11/03/24 19:41 Pulse Rate 142 H 11/03/24 19:41 Respiratory Rate 20 11/03/24 19:41 Blood Pressure 136/87 H 11/03/24 19:41 Pulse Oximetry (%) 99 11/03/24 19:41 Oxygen Delivery Method Room Air 11/03/24 19:41 Discharge Plan Plan Patient Disposition: HOME (Self Care) Discharge Disposition comment: Stable Prescriptions/Referrals Prescriptions/Med Rec: No Action amoxicillin-pot clavulanate 875-125 mg tablet 1 tab PO BID Qty: 20 0RF azithromycin [Zithromax] 250 mg tablet 250 mg PO QDAY 6 Days Qty: 6 0RF Rx Instructions: start on day 2 of therapy alprazolam [Xanax] 0.25 mg tablet 0.25 mg PO BID PRN (Reason: anxiety) Qty: 10 0RF Referrals: Rey Yu PA-C [Primary Care Provider] - In 1 week Problem List Clinical Impression: Palpitation, Regular sinus tachycardia Patient/Caregiver Discharge Instructions Discharge Activity: activity as tolerated Other Activity Instructions:: Maintain adequate rest/ Diet Instructions: Force fluids/adequate nutrition. Education Materials: ED Palpitations Additional Instructions: Increase fluids. Begin propranolol every 12 hours. May take every 8 hours if necessary. Return for persistent fevers, escalating shortness of breath, abdominal pain or general worse condition. Print Language: Azeri Stand Alone Forms: Miesha Award Info., Patient Portal Info Letter MDM Narrative MDM hospital course (for use when minimal MDM required): Scribe Attestation: 11/03/24 Jennifer Treviño am scribing for and in the presence of Dr. Davis. 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 Patient reports associated left precordial chest pressure. Please see PE findings. Lab markers demonstrated elevated WBC count 13.5, Hgb and platelets normal. Chemistries demonstrated hypokalemia with K 3.0, normal renal function, undetected troponin. UA demonstrated evidence of ketones and blood, although no signs of infection. CXR demonstrates atelectasis of the left base. EKG shows sinus tachycardia, no accessory pathway or [place]. 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 D-Dimer normal. Will not pursue the diagnosis of PE at this time in the absence of tachypnea or shortness of breath. Patient noted generalized vague abdominal discomfort and review of EMR reveals recent negative can. Discussed risks v. benefits regarding receiving additional radiation and will defer at this time. Etiology of patient's discomfort is likely related to recent Z-pack. Given patient's recurrent tachycardia, will administered second bolus of fluid. Patient has been prescribed propanolol prior to her recent discharge, but did not fill her prescription. Patient is encouraged to initiate beta blockage and follow-up with cardiology as an outpatient for ECHO and remote cardiac monitoring. Dx: sinus tachycardia, dehydration Clinical Information Provided by: patient Medical Records reviewed [facility] (Per chart review, patient was seen here on 10/12/24 for palpitations.) Meds/Rx considered, not ordered None Labs/Rad/Tests considered, not ordered None Chronic Illness/Social Conditions which may negatively complicate care or outcome(s)-explain: None or not applicable EKG Interpretation EKG #1: EKG Interpretation: EKG done at 2010, sinus tachycardia, rate of 141, no acute pathological ST segment changes, no ectopy, normal intervals, left axis deviation, according to my interpretation. Labs Labs: interpreted by me Imaging Imaging interpretation: interpreted by me Imaging Interpretation(s): [place] [facility] Report Signed Patient: RASHAUN AVILA [facility]. Record#: [id number] Birthdate: 1975 Age/Sex: 49 / F Location: [facility] Attending Dr: Ordering Physician: Obed Browne DO Date of Service: 11/03/24 Procedure(s): XR chest 1V portable Accession Number(s): [id number] cc: Obed Browne DO; Rey Yu PA-C; Jose Delarosa MD~ Examination: AP chest single view Technique one AP portable upright chest single view Date and time: November 03, 2024, 2145 hrs., Comparison 10/28/2024 Indications: Chest pain shortness of breath today. Findings: Subsegmental atelectasis left base Normal heart size No pneumonia or pulmonary edema The osseous structures are intact with old anterior upper right rib fractures Impression: Subsegmental atelectasis left base No pneumonia or pulmonary edema Dictated By: Jose Delarosa MD Signed By: <Electronically signed by Jose Delarosa MD in OV> 11/03/240 Medication Administration(s) Medication Administration History Sodium Chloride (Ns) 1,000 mls @ 100 mls/hr IV .Q10H ONE Stop: 11/04/24 07:30 Last Admin: 11/04/24 02:29 Dose: 100 mls/hr Documented By: Infusion: 11/04/24 02:29 Dose: Infused Documented By: Admin: 11/03/24 22:07 Dose: 100 mls/hr Documented By: STEVIE Sodium Chloride (Ns) 1,000 mls @ 999 mls/hr IV .Q1H1M ONE Stop: 11/04/24 03:23 Last Admin: 11/04/24 02:31 Dose: 999 mls/hr Documented By: STEVIE Discontinued Medications Sodium Chloride (Ns) 1,000 mls @ 999 mls/hr IV .Q1H1M ONE Stop: 11/03/24 22:58 Last Infusion: 11/03/24 23:59 Dose: Infused Documented By: Admin: 11/03/24 22:07 Dose: 999 mls/hr Documented By: STEVIE Metoprolol Tartrate (Metoprolol Tartrate Inj 1 Mg/Ml Amp 5 Ml) 2.5 mg IVP X1 ONE Stop: 11/03/24 21:36 Last Admin: 11/03/24 22:28 Dose: 2.5 mg Documented By: STEVIE Morphine Sulfate (Morphine Sulf Inj 4 Mg/Ml Vial) 4 mg IVP Q30M PRN PRN Reason: PAIN 1-6 (mild-mod Stop: 11/03/24 23:32 Potassium Chloride (Potassium Chloride 20 Meq Tabcr) 20 meq PO X1 ONE Stop: 11/04/24 02:04 Last Admin: 11/04/24 02:19 Dose: 20 meq Documented By: STEVIE see above Diagnosis Differential Diagnosis ED Complaint MDM: palpitations, anxiety, sinus tachycardia, aFib/flutter, dehydration
--- NOTE | 2024-11-03 21:31 | XR_ITS ---
Examination: AP chest single view Technique one AP portable upright chest single view Date and time: November 03, 2024, 2144 hrs., Comparison 10/28/2024 Indications: Chest pain shortness of breath today. Findings: Subsegmental atelectasis left base Normal heart size No pneumonia or pulmonary edema The osseous structures are intact with old anterior upper right rib fractures Impression: Subsegmental atelectasis left base No pneumonia or pulmonary edema
[2024-11-03] MEDS: SODIUM CHLORIDE 0.9% 1000 ML 1,000 ML 100 ML IV (22:07)
[2024-11-03] MEDS: SODIUM CHLORIDE 0.9% 1000 ML 1,000 ML 999 ML IV (22:07)
[2024-11-03 22:11] LABS: Collection Type, Urine Clean Catch
[2024-11-03 22:12] LABS: Basophils # (Auto) 0.0 Thou/mm3 (0.0-0.2); Basophils % (Auto) 0 % (0-2.5); Eosinophils # (Auto) 0.1 Thou/mm3 (0.0-0.5); Eosinophils % (Auto) 0 % (0-10); Hematocrit 38.4 % (36.0-46.0); Hemoglobin 13.4 g/dL (12.0-16.0); Immature Granulocytes Auto 0.04 Thou/mm3 (0.00-0.00); Lymphocytes # (Auto) 1.6 Thou/mm3 (1.0-4.8); Lymphocytes % (Auto) 12 % (10-50); Mean Corpuscular HGB Conc 34.9 g/dl (31.0-37.0); Mean Corpuscular Hemoglobin 30.5 pg (25.0-35.0); Mean Corpuscular Volume 88 fL (80-100); Monocytes # (Auto) 0.9 Thou/mm3 (0.0-0.8); Monocytes % (Auto) 6 % (0-12); Neutrophils # (Auto) 10.9 Thou/mm3 (1.8-7.7); Neutrophils % (Auto) 81 % (37-80); Nucleated Red Blood Cell # 0.00 Thou/mm3 (0.00-0.00); Nucleated Red Blood Cell % 0 /100 WBC (0); Platelet Count 235 Thou/mm3 (140-440); RDW Standard Deviation 39.8 fL (36.4-46.3); Red Blood Count 4.39 Miln/mm3 (4.00-5.20); White Blood Count 13.5 Thou/mm3 (3.6-11.0)
[2024-11-03 22:16] LABS: Bacteria,Urine Rare; Bilirubin,Urine Negative (Negative); Blood,Urine 3+ (Negative); Clarity,Urine Clear (Clear/Hazy); Color,Urine Yellow (Lt Yel-Yel); Culture Indicated,Urine Not Indicated; Glucose, Urine Trace (Negative); Ketones,Urine 2+ (Negative); Leukocyte Esterase,Urine Negative (Negative); Nitrite,Urine Negative (Negative); PH,Urine 6.0 (5.0-7.0); Protein,Urine Negative (Neg - Trace); RBC,Urine 6 /hpf (0-3); Specific Gravity,Urine 1.018 (1.001-1.035); Squamous Epithelial Cell,Urine 1 /hpf (0-5); Urobilinogen,Urine Negative mg/dL (0.0-1.0); WBC,Urine 1 /hpf (0-5)
[2024-11-03 22:22] LABS: Amphetamine/Methamp Scrn,U Negative (Negative); Barbiturate Screen,Urine Negative (Negative); Benzodiazepines Screen,Urine Negative (Negative); Benzoylecgonine Screen, Ur Negative (Negative); Fentanyl Screen,Urine Negative (Negative); Opiate Screen,Urine Negative (Negative); THC Screen,Urine Negative (Negative)
[2024-11-03] MEDS: METOPROLOL TARTRATE INJ 1 MG/ML AMP 5 ML 2.5 MG IVP (22:28)
[2024-11-03 22:32] LABS: B-Type Natriuretic Peptide < 20 pg/mL (0-100); D-Dimer 425 ng/mL (<600)
[2024-11-03 22:49] LABS: Alanine Aminotransferase 106 U/L (10-49); Albumin, Serum 4.4 gm/dL (3.5-5.0); Albumin/Globulin Ratio 1.5 (1.2-2.2); Alkaline Phosphatase 60 U/L (46-116); Anion Gap 10 (7-16); Aspartate Amino Transferase 39 U/L (0-34); BUN/Creatinine Ratio 9 Ratio (12-20); Bilirubin,Total 0.4 mg/dL (0.3-1.2); Blood Urea Nitrogen 6 mg/dL (9-23); Calcium 9.3 mg/dL (8.3-10.6); Calcium (Corrected) 9.3 mg/dL (8.5-10.1); Carbon Dioxide 20.2 mMol/L (20.0-31.0); Chloride 108 mMol/L (98-107); Creatinine (Component) 0.7 mg/dL (0.6-1.3); Estimated Creatinine Clearance 84.9 mL/min (>60); Globulin 3.0 gm/dL (2.3-3.5); Glucose 129 mg/dL (74-106); HCG Titer if Positive Negative; Magnesium 2.1 mg/dL (1.6-2.6); Osmolality,Calculated 275 (275-295); Potassium 3.0 mMol/L (3.4-5.1); Sodium 138 mMol/L (136-145); Thyroid Stimulating Hormone 4.08 uIU/mL (0.55-4.78); Total Protein 7.4 gm/dL (5.7-8.2); Troponin I < 0.002 ng/mL (0.0-0.045); eGFR > 60 See Note
[2024-11-04 00:12] LABS: Lipase 28 U/L (12-53)
[2024-11-04 00:21] VITALS: BP 119/76; PULSE 102; RESP 17; O2SAT 95
[2024-11-04] MEDS: SODIUM CHLORIDE 0.9% 1000 ML 1,000 ML 100 ML IV (02:29)
[2024-11-04] MEDS: SODIUM CHLORIDE 0.9% 1000 ML 1,000 ML 999 ML IV (02:31)
--- NOTE | 2024-11-04 03:22 | PC.NURSE ---
Marilu not on formulary-received new order from Dr. Moore for Metropolol tartate 12.5mg times 1 once.
[2024-11-04 03:29] VITALS: BP 109/71; PULSE 103
[2024-11-04] MEDS: METOPROLOL TARTRATE 25 MG TABLET 12.5 MG PO (03:29)
[2024-11-04 04:03] VITALS: PULSE 82; RESP 18
== END 2024-11-04 04:08 | disposition home or self-care (01) ==
PROVIDERS: Emergency Provider Emergency Medicine; PCP Physician Assistant
DX: J98.11 Atelectasis (principal); R00.2 Palpitations; R00.0 Tachycardia, unspecified
CPT/HCPCS: 36415; 71045; 80053; 80307; 81001; 83690; 83735; 83880; 84443; 84484; 84703; 85025; 85379; 93005; 99284; J3490; J7030; A9270

== ENCOUNTER 2024-12-31 19:30 | Emergency (ER) | payer MEDICAID, SELFPAY ==
[2024-12-31 19:32] VITALS: BP 112/76; PULSE 55; RESP 17; TEMP 36.4; O2SAT 96; BMI 26.2
--- NOTE | 2024-12-31 19:39 | EKG_ITS ---
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
--- NOTE | 2024-12-31 20:02 | XR_ITS ---
EXAMINATION: PA chest single view TECHNIQUE: Upright PA chest single view Date and time: December 31, 20242007 hours INDICATIONS: Chest pain shortness of breath today. FINDINGS: Minor subsegmental atelectasis left base Normal heart size No pneumonia or pulmonary edema IMPRESSION: Minor subsegmental atelectasis left base
--- NOTE | 2024-12-31 20:03 | PD.EDRME ---
Rapid Medical Screening Exam RME Arrival date/time: 12/31/24 19:30 This is a case of 49-year-old female who came in in the emergency room due to chest pain and mild shortness of breath today worsening his symptoms this patient decided to sought consult here in the emergency room Chief Complaint: Chest Pain Time Seen by Provider: 12/31/24 20:01 Vital signs: Vital Signs Temperature 97.6 F 12/31/24 19:32 Pulse Rate 55 L 12/31/24 19:32 Respiratory Rate 17 12/31/24 19:32 Blood Pressure 112/76 12/31/24 19:32 Pulse Oximetry (%) 96 12/31/24 19:32 Oxygen Delivery Method Room Air 12/31/24 19:32 Exam: Normal rate regular rhythm no murmur lungs clear no crackles no wheezing no retraction no stridor Clinical Impression: Chest pain
[2024-12-31 20:18] LABS: Basophils # (Auto) 0.1 Thou/mm3 (0.0-0.2); Basophils % (Auto) 1 % (0-2.5); Eosinophils # (Auto) 0.1 Thou/mm3 (0.0-0.5); Eosinophils % (Auto) 2 % (0-10); Hematocrit 40.8 % (36.0-46.0); Hemoglobin 13.8 g/dL (12.0-16.0); Immature Granulocytes Auto 0.00 Thou/mm3 (0.00-0.00); Lymphocytes # (Auto) 2.2 Thou/mm3 (1.0-4.8); Lymphocytes % (Auto) 35 % (10-50); Mean Corpuscular HGB Conc 33.8 g/dl (31.0-37.0); Mean Corpuscular Hemoglobin 30.7 pg (25.0-35.0); Mean Corpuscular Volume 91 fL (80-100); Monocytes # (Auto) 0.4 Thou/mm3 (0.0-0.8); Monocytes % (Auto) 7 % (0-12); Neutrophils # (Auto) 3.5 Thou/mm3 (1.8-7.7); Neutrophils % (Auto) 56 % (37-80); Nucleated Red Blood Cell # 0.00 Thou/mm3 (0.00-0.00); Nucleated Red Blood Cell % 0 /100 WBC (0); Platelet Count 220 Thou/mm3 (140-440); RDW Standard Deviation 42.8 fL (36.4-46.3); Red Blood Count 4.50 Miln/mm3 (4.00-5.20); White Blood Count 6.3 Thou/mm3 (3.6-11.0)
[2024-12-31 20:37] LABS: D-Dimer < 250 ng/mL (<600)
[2024-12-31 20:38] LABS: B-Type Natriuretic Peptide < 20 pg/mL (0-100)
[2024-12-31 20:41] LABS: Alanine Aminotransferase 20 U/L (10-49); Albumin, Serum 4.4 gm/dL (3.5-5.0); Albumin/Globulin Ratio 1.5 (1.2-2.2); Alkaline Phosphatase 87 U/L (46-116); Anion Gap 8 (7-16); Aspartate Amino Transferase < 8 U/L (0-34); BUN/Creatinine Ratio 18 Ratio (12-20); Bilirubin,Total 0.4 mg/dL (0.3-1.2); Blood Urea Nitrogen 14 mg/dL (9-23); Calcium 10.0 mg/dL (8.3-10.6); Calcium (Corrected) 10.0 mg/dL (8.5-10.1); Carbon Dioxide 25.7 mMol/L (20.0-31.0); Chloride 108 mMol/L (98-107); Creatinine (Component) 0.8 mg/dL (0.6-1.3); Estimated Creatinine Clearance 72.4 mL/min (>60); Globulin 2.9 gm/dL (2.3-3.5); Glucose 93 mg/dL (74-106); Osmolality,Calculated 283 (275-295); Potassium 4.0 mMol/L (3.4-5.1); Sodium 142 mMol/L (136-145); Total Protein 7.3 gm/dL (5.7-8.2); Troponin I < 0.002 ng/mL (0.0-0.045); eGFR > 60 See Note
[2024-12-31 21:33] VITALS: BP 117/66; PULSE 60; RESP 17; TEMP 36.4; O2SAT 99
[2024-12-31 21:46] LABS: Collection Type, Urine Clean Catch
--- NOTE | 2024-12-31 21:47 | EDNOTE_ITS ---
ED Chest Pain RME/HPI General Chief Complaint: Chest Pain Stated Complaint: chest pressure Time Seen by Provider: 12/31/24 20:01 Arrival date/time: 12/31/24 19:30 RME / HPI RME / HPI narrative: 12/31/24 19:30 This is a case of 49-year-old female who came in in the emergency room due to chest pain and mild shortness of breath today worsening his symptoms this patient decided to sought consult here in the emergency room Dr. Matos?s Main ED Evaluation: 49yo female presents to the ED for a chief complaint of mid chest pressure x today. Patient reports intermittent radiation of pain to her back. No N/V/D, fever, chills, cough, palpitations, or any other associated symptoms. 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 NKA. Related Data Previous Rx's ?Medication ?Instructions ?Recorded alprazolam 0.25 mg tablet (Xanax) 0.25 mg PO BID PRN a nxiety #10 tabs 10/13/24 amoxicillin 875 mg-potassium 1 tab PO BID #20 tabs clavulanate 125 mg tablet Allergies Allergy/AdvReac Type Severity Reaction Status Date / Time No Known Allergies Allergy Verified 12/31/24 19:37 Review of Systems Review of Systems Systems Reviewed: All systems reviewed, normal except as documented Past Medical History Past Medical History CARDIAC: Negative Cardiac Disorders or Congestive Heart Failure RESPIRATORY: Negative Chronic Obstructive Pulmonary Disease (COPD) or Asthma GENITOURINARY: Negative Renal Disease ENDOCRINE: Negative Diabetes Mellitus Type 1 or Diabetes Mellitus Type 2 HEMATOLOGIC: Negative Sickle Cell Disease Surgical History SURGICAL: Positive Section Social History SMOKING STATUS: Never smoker ED Exam Narrative Physical exam: Generally patient is alert and in no obvious distress, heart regular rate and rhythm, lungs clear to auscultation equal bilaterally, abdomen soft bowel sounds present also nontender, skin is warm pale and dry, neurologic exam Mirta Coma Scale of 15 Course Course Course Narrative: CXR is ordered for determining the etiology of chest pain. Quality Measures none Orders Category Date Time Status EKG (ED ONLY) *Do not use* NOW Care 12/31/24 19:39 Completed EKG (ED Only) Stat Exams 12/31/24 19:39 Draft XR chest 1V Stat Exams 12/31/24 20:02 Completed BNP [B-Type Natriuretic Peptide] Stat Lab 12/31/24 20:10 Completed CBC Stat Lab 12/31/24 20:10 Completed Comprehensive Metabolic Panel Stat Lab 12/31/24 20:10 Completed D-Dimer Stat Lab 12/31/24 20:10 Completed HCG Qualitative,Urine Stat Lab 12/31/24 21:18 Completed Troponin I Stat Lab 12/31/24 20:10 Completed Urinalysis Stat Lab 12/31/24 21:18 Completed Vital Signs Vital signs: Vital Signs Temperature 97.6 F 12/31/24 19:32 Pulse Rate 55 L 12/31/24 19:32 Respiratory Rate 17 12/31/24 19:32 Blood Pressure 112/76 12/31/24 19:32 Pulse Oximetry (%) 96 12/31/24 19:32 Oxygen Delivery Method Room Air 12/31/24 19:32 Chest Pain MDM Narrative MDM Narrative:: Scribe Attestation: 12/31/24 Jennifer Treviño am scribing for and in the presence of Dr. Matos. Troponin is not elevated. This is a greater than 3-hour troponin. Chest x-ray is normal. EKG shows normal sinus rhythm at a rate of 61 without ischemic change or ectopy. D-dimer is not elevated. Patient has been here multiple times for chest pain and palpitations. She does have a automatic grinding machine operator in [place]. Heart score is 2. Patient is stable for discharge. Patient is chest pain pressure tightness and heaviness free at time of discharge. Patient data External records reviewed:: [facility] previous records (Per chart review, patient was seen here on 11/03/24 for palpitations.) Clinical information provided by:: patient Social determinants that could affect healthcare access:: none Patient has the following chronic illnesses:: none How is presenting disease/condition affected by chronic disease/condition?: no chronic disease Evaluation data The following diagnostics were reviewed and interpreted by me:: lab results, radiology exam(s) and EKG tracing(s) Lab and/or radiology exams considered but not ordered:: none Interpretation Summary: [facility] Report Signed Patient: RASHAUN AVILA [facility]. Record#: [id number] Birthdate: 1975 Age/Sex: 49 / F Location: [facility] Attending Dr: Ordering Physician: Rosa Stallings Date of Service: 12/31/24 Procedure(s): XR chest 1V Accession Number(s): [id number] cc: Rey Yu PA-C; Jose Delarosa MD; Rosa Stallings~ EXAMINATION: PA chest single view TECHNIQUE: Upright PA chest single view Date and time: December 31, 2024, 2007 hours INDICATIONS: Chest pain shortness of breath today. FINDINGS: Minor subsegmental atelectasis left base Normal heart size No pneumonia or pulmonary edema IMPRESSION: Minor subsegmental atelectasis left base Dictated By: Jose Delarosa MD Signed By: <Electronically signed by Jose Delarosa MD in OV> 12/31/242044 Medications / Prescriptions Medications or Prescriptions considered but not ordered:: none Medication administrations:: none Consultations Consultation(s) initiated? (list below): No Diagnosis Chest Pain Differential Diagnosis: other (See MDM) Most likely diagnosis given after review of the tests above:: see clinical impression below Admission Indicated Admission indicated?: not indicated Admission Request Was there a request for admission?: No Disposition Plan Disposition Plan: Discharge Discharge Attestation Discharge Attestation: The patient and all family members were given an opportunity to ask questions and understood the discharge instructions. Discharge instructions specifically effects, indications for sooner follow up or return to the emergency department, and the expected course of current diagnosis. Patient condition: Stable Discharge Plan Plan Patient Disposition: HOME (Self Care) Prescriptions/Referrals Prescriptions/Med Rec: No Action amoxicillin-pot clavulanate 875-125 mg tablet 1 tab PO BID Qty: 20 0RF alprazolam [Xanax] 0.25 mg tablet 0.25 mg PO BID PRN (Reason: anxiety) Qty: 10 0RF Referrals: Rey Yu PA-C [Primary Care Provider] - In 1 week Problem List Clinical Impression: Chest pain Patient/Caregiver Discharge Instructions Education Materials: ED Chest Pain, Uncertain Cause Additional Instructions: Continue current medications. Follow-up with your automatic grinding machine operator for further treatment and evaluation. Print Language: Swazi Stand Alone Forms: Miesha Award Info., Patient Portal Info Letter
[2024-12-31 21:51] LABS: Bilirubin,Urine Negative (Negative); Blood,Urine Negative (Negative); Clarity,Urine Clear (Clear/Hazy); Color,Urine Lt-Yellow (Lt Yel-Yel); Glucose, Urine Negative (Negative); HCG Qualitative,Urine Negative; Ketones,Urine Negative (Negative); Leukocyte Esterase,Urine Positive (Negative); Nitrite,Urine Negative (Negative); PH,Urine 6.0 (5.0-7.0); Protein,Urine Negative (Neg - Trace); RBC,Urine 2 /hpf (0-3); Specific Gravity,Urine 1.026 (1.001-1.035); Squamous Epithelial Cell,Urine 2 /hpf (0-5); Urobilinogen,Urine Negative mg/dL (0.0-1.0); WBC,Urine 3 /hpf (0-5)
[2024-12-31 22:59] VITALS: BP 105/61; PULSE 65; RESP 16; O2SAT 96
== END 2024-12-31 23:00 | disposition home or self-care (01) ==
PROVIDERS: Nurse Practitioner Family; Emergency Provider Emergency Medicine; PCP Physician Assistant
DX: J98.11 Atelectasis (principal)
CPT/HCPCS: 36415; 71045; 80053; 81001; 81025; 83880; 84484; 85025; 85379; 93005; 99283

== ENCOUNTER → 2025-01-26 | Outpatient (CLI) | payer MEDICAID, SELFPAY ==
--- NOTE | 2025-01-26 15:00 | XR_ITS ---
Examination: CT soft tissue neck, with intravenous contrast. 2-D coronal reconstructions. 2-D sagittal reconstructions. Date and time of exam : January 26, 2025, 1614 hours INDICATIONS: Left-sided neck swelling and discomfort beginning 1 month ago. CTDI: vol (mGy): 11.4 DLP: (mGycm): 303 Technique: 1.25 mm axial sections of the neck of the obtained. Coronal and sagittal reconstructions have been obtained. Intravenous contrast administered 50 cc Isovue-370. Low dose protocols were performed. One or more of the following dose reduction techniques were used; automated exposure control, adjustment of the mA and/or KV according to patient size, use of iterative reconstruction technique. Findings: Maxillary antra are clear Symmetrical nasopharynx oropharynx Symmetrical submandibular glands and parotid glands No pathologic carotid triangle or posterior cervical lymphadenopathy Thyroid lobes are not enlarged Normal epiglottis Lung apices clear IMPRESSION: No soft tissue neck mass No pathologic cervical lymphadenopathy Given the patient's presentation, recommend ultrasound soft tissue follow-up of any palpable left-sided neck mass
== END | disposition home or self-care (01) ==
LOC: SCAT 14:31
PROVIDERS: PCP Physician Assistant; Referring Provider Student in an Organized Health Care Education/Training Program; Visit Provider Student in an Organized Health Care Education/Training Program
DX: R22.1 Localized swelling, mass and lump, neck (principal)
CPT/HCPCS: 70491; A4649; Q9967